=== PATIENT | male | born 1945 | race Caucasian/White ===

== ENCOUNTER → 2018-12-17 | Outpatient (CLI) | payer MEDICARE ==
--- NOTE | 2018-12-17 13:37 | Diagnostic Imaging Report ---
INDICATION: Right foot and toe stiffness. TIME OF EXAM: 11:56 a.m. FINDINGS: Three views of the right foot were obtained. The metatarsals are intact. The phalanges are intact. Mid foot and hind foot are unremarkable apart from a small plantar calcaneal spur. No fractures are seen. IMPRESSION: No acute bony abnormality is detected. Dictated by: Dictated on workstation # [id number]
== END ==
LOC: RAD 11:34
DX: M25.674 Stiffness of right foot, not elsewhere classified (principal); M79.671 Pain in right foot
CPT/HCPCS: 73630